=== PATIENT | female | born 1940 | race Caucasian/White ===

== ENCOUNTER → 2022-10-20 | Outpatient (CLI) | payer MEDICARE ==
[2022-10-20 16:40] LABS: CREATININE 1.1 mg/dL (0.5-1.5)
== END | disposition home or self-care (01) ==
LOC: LAB 15:13
PROVIDERS: ATTEND Internal Medicine Cardiovascular Disease
DX: I10 Essential (primary) hypertension (principal)
CPT/HCPCS: 36415; 80048

== ENCOUNTER → 2022-11-02 | Outpatient (CLI) | payer MEDICARE ==
[~2022-11-02] MED LIST: IOHEXOL 350 MG/ML 100ML INFUS..BTL IV ONE
== END | disposition home or self-care (01) ==
LOC: RAH 09:29
PROVIDERS: ATTEND Internal Medicine Cardiovascular Disease
DX: I71.20 Thoracic aortic aneurysm, without rupture, unspecified (principal); I71.40 Abdominal aortic aneurysm, without rupture, unspecified; N28.1 Cyst of kidney, acquired; M47.815 Spondylosis without myelopathy or radiculopathy, thoracolumbar region; J98.11 Atelectasis
CPT/HCPCS: 71275; Q9967